=== PATIENT | male | born 1960 | race African-American/Black ===

== ENCOUNTER 2020-03-25 00:31 | Emergency (ER) | payer MEDICAID ==
[~2020-03-25] VITALS: Ht 180.3 cm; Wt 116.6 kg
[2020-03-25] MEDS ORDERED: HYDROCHLOROTHIAZIDE (01:04)
[2020-03-25] MEDS ORDERED: HYDROCHL (01:04)
[2020-03-25] MEDS ORDERED: AZITHROMYCIN 500 MG TABLET PO ONE (01:15)
[2020-03-25] MEDS ORDERED: CEFTRIAXONE SODIUM 250 MG/VIAL IM ONE (01:15)
[2020-03-25 02:52] VITALS: BP 147/88
== END 2020-03-25 02:52 | disposition home or self-care (01) ==
LOC: ER 01:34
DX: A54.9 Gonococcal infection, unspecified (principal); E78.00 Pure hypercholesterolemia, unspecified; I10 Essential (primary) hypertension; Z98.890 Other specified postprocedural states; Z20.2 Contact with and (suspected) exposure to infections with a predominantly sexual mode of transmission
CPT/HCPCS: 96372; 99283; J0696